=== PATIENT | male | born 1940 | race Caucasian/White ===

== ENCOUNTER 2018-03-28 01:15 | Emergency (ER) | payer MEDICARE ==
[~2018-03-28] VITALS: Ht 172.7 cm; Wt 68.0 kg
--- NOTE | 2018-03-28 01:15 | NUR ---
[facility] at bedside for interview.
--- NOTE | 2018-03-28 01:21 | NUR ---
Dr. Caraballo at bedside for MSE.
[2018-03-28] MEDS ORDERED: ONDANSETRON ODT 4 MG TAB.RAPDIS ONE ×2 (01:34→04:50)
[2018-03-28] MEDS: ONDANSETRON ODT 4 MG TAB.RAPDIS SL ONE ×2 (01:49→04:50)
[2018-03-28] MEDS: METOPROLOL SUCCINATE XL 25 MG TAB.SR.24H PO ONE (01:52)
[2018-03-28] MEDS ORDERED: METOPROLOL SUCCINATE XL 25 MG TAB.SR.24H PO ONE (01:55)
--- NOTE | 2018-03-28 03:20 | NUR ---
Pt states he is nauseous again.
[2018-03-28] MEDS: GABAPENTIN 300 MG CAPSULE PO ONE (03:45)
[2018-03-28] MEDS: ESCITALOPRAM OXALATE 10 MG TABLET PO ONE (03:45)
[2018-03-28] MEDS ORDERED: GABAPENTIN 300 MG CAPSULE ONE (03:47)
[2018-03-28] MEDS ORDERED: ESCITALOPRAM OXALATE 10 MG TABLET ONE (03:47)
--- NOTE | 2018-03-28 04:45 | NUR ---
Xray at bedside.
[2018-03-28] MEDS ORDERED: MIRTAZAPINE 15 MG TABLET ONE (04:50)
[2018-03-28] MEDS: MIRTAZAPINE 15 MG TABLET PO ONE (04:50)
[2018-03-28 05:04] LABS: BASOPHILS % (AUTO) 0.3 % (0.0-2.0); EOSINOPHILS % (AUTO) 0.2 % (0.0-7.0); HEMATOCRIT 38.4 % (36.7-47.1); HEMOGLOBIN 13.4 g/dL (12.5-16.3); LYMPHOCYTES # (AUTO) 0.6 K/uL (20.0-40.0); LYMPHOCYTES % (AUTO) 8.4 % (20.5-51.5); MEAN CORPUSCULAR HEMOGLOBIN 31.6 uug (23.8-33.4); MEAN CORPUSCULAR HGB CONC 35 g/dL (32.5-36.3); MEAN CORPUSCULAR VOLUME 90.8 fL (73.0-96.2); MONOCYTES # (AUTO) 0.3 K/uL (2.0-10.0); MONOCYTES % (AUTO) 4.3 % (0.0-11.0); NEUTROPHILS # (AUTO) 5.9 K/uL (1.8-8.9); NEUTROPHILS % (AUTO) 86.8 % (38.5-71.5); PLATELET COUNT (AUTO) 156 K/uL (152-348); RED BLOOD CELL COUNT(AUTO) 4.23 MIL/uL (4.06-5.63); WHITE BLOOD COUNT (AUTO) 6.8 K/uL (3.6-10.2)
[2018-03-28 05:17] LABS: CARBON DIOXIDE 29 mmol/L (21-32); CHLORIDE 104 mmol/L (98-107); CREATININE 1.6 mg/dL (0.6-1.3); GLUCOSE 123 mg/dL (74-106); POTASSIUM 4.4 mmol/L (3.5-5.1); UREA NITROGEN, BLOOD 23 mg/dL (7-18)
[2018-03-28 05:30] LABS: ALANINE AMINOTRANSFERASE 37 U/L (16-63); ALKALINE PHOSPHATASE 92 U/L (50-136); ASPARTATE AMINOTRANSFERASE 29 U/L (15-37); BILIRUBIN,DIRECT 0.2 mg/dL (0.0-0.2); BILIRUBIN,TOTAL 0.5 mg/dL (0.2-1.0); TOTAL PROTEIN, SERUM 7.8 g/dL (6.4-8.2)
[2018-03-28] MEDS ORDERED: NEOMY/BACITRA/POLYMYXIN B OINT UD PACKET TP ONE (05:47)
[2018-03-28] MEDS: NEOMY/BACITRA/POLYMYXIN B OINT UD PACKET TP ONE (05:49)
--- NOTE | 2018-03-28 06:06 | NUR ---
Patient discharged to home in stable conditon. Written and verbal after care instructions given. Patient verbalizes understanding of instructions. Pt ambulated out of ER with steady gait, no acute signs of distress, VSS, all belongings taken.
[2018-03-28 06:07] VITALS: BP 163/87
== END 2018-03-28 06:08 | disposition home or self-care (01) ==
LOC: ER 01:24
DX: I10 Essential (primary) hypertension (principal); N28.9 Disorder of kidney and ureter, unspecified; R11.0 Nausea; V49.9XXA Car occupant (driver) (passenger) injured in unspecified traffic accident, initial encounter; Y93.89 Activity, other specified; Y92.410 Unspecified street and highway as the place of occurrence of the external cause; Y99.8 Other external cause status
CPT/HCPCS: 36415; 70030-TC; 71045; 85025; 85730; 93005; A4663; Q0162